=== PATIENT | male | born 1975 | race Caucasian/White ===

== ENCOUNTER 2021-11-13 16:26 | Emergency (ER) | payer OTHER ==
[2021-11-13 18:17] LABS: HEMOGLOBIN 12.2 gm/dl (14.0-17.5); RED BLOOD COUNT 3.88 M/UL (4.20-5.50); WHITE BLOOD COUNT 4.9 K/UL (4.5-11.0)
[2021-11-13 18:38] LABS: BUN/CREATININE RATIO 21 (0-10)
[2021-11-13] MEDS ORDERED: K-TAB ER20 MEQ PO (21:56)
[2021-11-13] MEDS ORDERED: LASIX 40 MG TAB40 MG PO (21:56)
[2021-11-13] MEDS ORDERED: IBUPROFEN800 MG PO (21:56)
== END 2021-11-13 22:00 | disposition home or self-care (01) ==
LOC: ER1 16:26
PROVIDERS: Physician Assistant
DX: R07.89 Other chest pain (principal); R51.9 Headache, unspecified; R60.1 Generalized edema; R14.0 Abdominal distension (gaseous); F17.210 Nicotine dependence, cigarettes, uncomplicated
CPT/HCPCS: 70450; 71045; 80053; 81001; 82550; 82553; 83880; 84484; 85025; 85379; 93005; 96374; 99285; J1940; Q9967